=== PATIENT | female | born 1965 | race Caucasian/White ===

== ENCOUNTER 2016-08-04 08:15 | Inpatient (IN) | payer SELFPAY ==
[~2016-08-04] VITALS: Ht 162.6 cm; Wt 63.0 kg
--- NOTE | ~2016-08-04 | DS ---
ADMIT: 08/04/2016 RM/LOC: 527 [facility] MR#: [id number] [address] [facility] [address], [place] [address] XANDER SAALS [address] [place] [address] Discharge Summary SEX: F AGE: 50 : 1965 ADMISSION DATE: 08/04/2016 DISCHARGE DATE: 08/06/2016 REASON FOR HOSPITALIZATION: Abdominal pain, nausea, vomiting. HISTORY: A 50-year-old female patient with recurrent abdominal ascites planning for outpatient hepatic speciality clinic workup in [place]. She is receiving paracentesis on a regular basis for symptomatic ascites. She presented to the hospital with 12-18 hours of nausea, vomiting, chills, but no definite fever. HOSPITAL COURSE: She was admitted to the hospital. Dr. Mcknight arranged for IV hydration at 175 mL per hour, Dilaudid PSYCHIC READER, Zofran, CT of the abdomen and pelvis and further lab work including stool C. Difficile. She was found to be positive for C. Difficile and p.o. vancomycin was started. On 08/06, Dr. Gordon saw the patient and felt she was appropriate for dismissal home. She was to continue an oral course of vancomycin. FINAL DIAGNOSES: 1. Clostridium difficile colitis. 2. Questionable subacute bacterial peritonitis. 3. History of cervical cancer. 4. Recurrent ascites. DISCHARGE INSTRUCTIONS: She was to follow up in my office in one week. Khoi Nath DO/ kayode JOB #: [id number] CC: Khoi Nath DO, Attending Physician Khoi Nath DO, Family Physician
[~2016-08-04 08:15] MED LIST: CATAPRES-DPS0.1 MG PO; CRANBERRY450 M1 PO; HYDROCODONE 5MG/5 MG PO; THERAPEUTIC MUL1 TAB PO; ZESTRIL DPS10 MG PO
[2016-08-07] MEDS ORDERED: NORCO 5-325 TA1 EACH PO (17:24)
[2016-08-07] MEDS ORDERED: CIPRO DPS500 MG PO (17:24)
[2016-08-07] MEDS ORDERED: VANCOCIN125 MG PO (17:25)
--- NOTE | 2016-08-12 08:10 | ER ---
ADMIT: 08/04/2016 RM/LOC: 527 [facility] MR#: [id number] [address] [facility] [address] [place], [place] [address] XANDER SALAS [address] [place] [address] Emergency Room Report SEX: F AGE: 50 : 1965 DATE: 08/04/2016 HISTORY OF PRESENT ILLNESS: A 50-year-old female with known ascites, comes to the Emergency Department with complaints of abdominal pain, nausea, and retching, started sudden onset last night. She said she has similar episodes, but not as severe, each time prior to having a paracentesis done. She denies fevers, chills. Denies chest pain or shortness of breath. PAST MEDICAL HISTORY: Ascites and liver failure of undetermined etiology. PHYSICAL EXAMINATION: GENERAL: Reveals a 50-year-old female, in mild amount of distress. She is alert, oriented, appropriate. LUNGS: Clear to auscultation. CARDIOVASCULAR: Tachycardia. ABDOMEN: Soft, but tender in the right upper quadrant. Normal bowel tones. SKIN: Unremarkable. EXTREMITIES: Unremarkable. MASTER BLACK BELT: No focal findings. LABORATORY DATA: Pertinent labs; CBC was within normal parameters. Chemistries with a potassium 3.1, glucose 113. A right upper quadrant ultrasound was unremarkable, save for ascites. The patient was admitted with abdominal pain and ascites. Jay Talavera MD/ ailyn JOB #: [id number] CC: Khoi Nath DO, Attending Physician Khoi Nath DO, Family Physician
--- NOTE | 2016-09-20 08:17 | HP ---
ADMIT: 08/04/2016 RM/LOC: 527 [facility] MR#: [id number] [address] [facility] [address] [place], [place] [address] XANDER SALAS [address] [place] [address] History and Physical SEX: F AGE: 50 : 1965 DATE OF SERVICE: 08/04/2016 REASON FOR HOSPITALIZATION: Nausea, vomiting, and chills. HISTORY: The patient presented with nausea, vomiting, and chills and Dr. Mcknight did her initial assessment, history and physical. She was having abdominal pain, increased ascites, and receives recurrent paracentesis. SOCIAL HISTORY She lives with her mother. She continues to smoke. FAMILY HISTORY Noncontributory other than coronary disease and COPD. REVIEW OF SYSTEMS: General weakness, nausea, vomiting, and chills without definite fever. No bleeding. PHYSICAL EXAMINATION: GENERAL: On exam, she was tremulous, awake, alert. HEART: Regular. ABDOMEN: Soft and noted to be benign. She was having some nausea and emesis. IMPRESSION: Nausea and vomiting with possibilities being a spontaneous bacterial peritonitis versus pancreatitis. PLAN: Dr. Mcknight admitted her, evaluated her with labs, gave her Dilaudid AUTOMOTIVE PROFESSIONAL, Zofran, nausea management, and began supportive cares. Khoi Nath DO/ shadel JOB #: [id number] CC: Kohi Nath DO, Attending Physician Khoi Nath DO, Family Physician
[2016-11-16] MEDS ORDERED: DELTASONE DPS20 MG PO (10:50)
[2016-11-16] MEDS ORDERED: DELTASONE DPS5 MG PO (10:51)
[2016-11-16] MEDS ORDERED: PRO-AMATINE2.5 MG PO (10:51)
[2017-01-04] MEDS ORDERED: MILK THISTLE140 M1 PO (13:17)
[2017-01-04] MEDS ORDERED: B-COMPLEX WITH1 EAC2 PO (13:17)
[2017-01-04] MEDS ORDERED: CRANBERRY200 MG PO (13:17)
[2017-01-04] MEDS ORDERED: ATIVAN-DPS0.5 MG PO (13:19)
== END 2016-08-06 15:20 | disposition home or self-care (01) | DRG 371 ==
LOC: ER 08:15 → 5MS 10:33
PROVIDERS: ADMIT Internal Medicine
PROC: 0W9G3ZZ Drainage of Peritoneal Cavity, Percutaneous Approach (ICD-10-PCS; principal; 2016-08-04)
DX: A04.7 Enterocolitis due to Clostridium difficile (principal); K65.2 Spontaneous bacterial peritonitis; R18.8 Other ascites; F17.210 Nicotine dependence, cigarettes, uncomplicated; K72.90 Hepatic failure, unspecified without coma; Z85.41 Personal history of malignant neoplasm of cervix uteri; Z82.49 Family history of ischemic heart disease and other diseases of the circulatory system

== ENCOUNTER 2016-11-11 20:30 | Inpatient (IN) | payer SELFPAY ==
[~2016-11-11] VITALS: Ht 162.6 cm; Wt 66.9 kg
--- NOTE | ~2016-11-11 | ECH ---
Transthoracic Echocardiography Report (TTE) Demographics Patient Name XANDER SALAS Date of Study 11/13/2016 FERNANDA Patient Number [id number] Visit Number [id number] Date of 1965 Room Number 532 Accession Number [id number] Gender Female Age 51 year(s) Referring Portillo Mendiola MD Bag Sorter Guera Gonzalez [facility] Physician Physician Lexie Pathak MD Knocker Off Physician Rosalino Supervising Ordering Physician Portillo Mendiola MD, MD/P Nurse Stress Qc Chemist Conclusions Contractility Score Summary Normal Left Ventricular contractility was noted. Summary Technically adequate exam. The estimated left ventricular ejection fraction is 60-65%. Diastolic assessment reveals normal relaxation. Mild left ventricular hypertrophy. No significant valvular abnormalities. Recommendation The patient will be given the results of this study by the physician who ordered the exam. Procedure Type of Study TTE procedure:Echo Complete SF. Procedure Date Date: 11/13/2016 Start: 08:16 Technical Quality: Adequate visualization Indications:Bradycardia. Additional Indications:orthostatic hypotension Appropriate Use Criteria: 9 Height: 65 inches Weight: 146 pounds BSA: 1.73 m Rhythm: Sinus bradycardia HR: 55 bpm BP: 139/72 mmHg M-Mode/2D Measurements LV Diastolic Dimension: 4.55 cm LV Systolic Dimension: 2.7 cm LV Septum Diastolic: 0.97 cm LV PW Diastolic: 1.02 cm AO Root Dimension: 2.3 cm Cardiac Output: 3.08 l/min LA Dimension: 4.24 cm Cardiac Index: 1.78 l/min*m RV Diastolic Dimension: 3.07 cm LA volume index: 38 ml/m LVOT: 1.76 cm LVOT VTI: 23 cm RV Base: 2.85 cm LV Stroke volume: 55.93 ml RV Mid: 1.87 cm LV Stroke volume index: 32.33 ml/m RV Length: 5.5 cm TAPSE: 3.07 cm TDI-S': 16 cm/s Doppler Measurements AV Peak Velocity: 1.48 m/s MV Peak E-Wave: 0.92 m/s AV Peak Gradient: 8.76 mmHg MV Peak A-Wave: 0.46 m/s AV Mean Gradient: 4.7 mmHg MV E/A Ratio: 2 LVOT Peak Velocity: 1.29 m/s MV P1/2t: 60 msec AV Area (Continuity):1.64 cm MV Deceleration Time: 207 msec Estimated RAP:10 mmHg MV Area (PHT): 3.66 cm PV Peak Velocity: 0.66 m/s PV Peak Gradient: 1.74 mmHg RA Area: 13.21 cm Findings Left Ventricle The left ventricle is normal in size . Mild left ventricular hypertrophy. Diastolic assessment reveals normal relaxation. Right Ventricle Normal right ventricle structure and function. Left Atrium Normal left atrial size. Right Atrium Normal right atrial size. Mitral Valve Normal mitral valve structure and function. Trivial mitral regurgitation by color Doppler. Aortic Valve Normal aortic valve structure and function. Tricuspid Valve Normal tricuspid valve structure and function. Pulmonic Valve Normal pulmonic valve structure and function. Trivial pulmonic valve regurgitation by color Doppler. Pericardial Effusion No evidence of pericardial effusion. Miscellaneous Visualized portions of the aortic root and ascending aorta appear normal in size. Pleural Effusion No evidence of pleural effusion. Contractility Score LV regional wall motion:(0-Non visualized 1-Normal 2-Hypokinesis 3-Akinesis 4-Dyskinesis 5-Aneurysm) Signature
[~2016-11-11 20:30] MED LIST changes: +CIPRO DPS500 MG PO; +NORCO 5-325 TA1 EACH PO; +VANCOCIN125 MG PO
--- NOTE | 2016-11-12 06:58 | ER ---
ADMIT: 11/11/2016 RM/LOC: ER [facility] MR#: [id number] 2620 [facility] [address] [place], [place] [address] XANDER SALAS [address] [place] [address] Emergency Room Report SEX: F AGE: 51 : 1965 DATE: 11/11/2016 HISTORY OF PRESENT ILLNESS: The patient is a 51-year-old female with a past medical history of ascites of unknown cause and chronic liver disease, came to the ER with chief complaint of feeling shaky and feeling dizzy after standing up. The patient states all day she was nauseous, but did not vomit that much and did not have any diarrhea. The patient states she felt very dizzy after standing up from sitting or lying flat and she feels very shaky after that and allegedly on one episode, she had to sit down and after sitting down, she rolled over on a stair, but no loss of consciousness, no head trauma and ambulated after that. The patient denies any headaches, neck pain, back pain, chest pain, shortness of breath, or abdominal pain. PHYSICAL EXAMINATION: VITAL SIGNS: The patient has blood pressure of 168 over 80s, heart rate is changing from mid 40s to mid 50s, respiratory rate is 18, temperature is 97.9, and O2 saturation is 97% on room air. GENERAL: The patient is lethargic and a little anxious with mild distress. HEENT/NECK: I did not see any signs of trauma. No hemotympanum. No bowel sign or raccoon eyes. There is no spinal midline tenderness or step-offs. Pupils are 3 mm, reactive to light. NEUROLOGICAL: Motor and sensory and cerebellar and cranial nerves exam are grossly normal. CHEST: Normal equal breath sounds without any crackles. HEART: Normal S1, S2 without any murmurs. Also, no gallops. ABDOMEN: Soft. I did not feel any fluid wave in abdomen. There is no tenderness in abdomen and no rebound. EXTREMITIES: I did not see any swelling in the extremities. EMERGENCY ROOM COURSE: Orthostatic vitals were positive. The patient was started on IV fluid normal saline 1 L. Followup labs shows sodium of 136, with potassium of 3.0, and magnesium of 1.4. The patient also was given 2 g of magnesium sulfate IV and also 60 mEq of K-Dur p.o. The patient's urine tox ADMIT: 11/11/2016 RM/LOC: [facility] MR#: [id number] [address] [address] XANDER SALAS [place] [address] Emergency Room Report SEX: F AGE: 51 : 1965 was negative and blood alcohol level was 48. Ammonia level was 22 and AST and ALT were 27 and 24 respectively. After the 1st liter, the patient was rechecked and still had orthostatic hypotension. The patient received a 2nd L of fluid. Meanwhile, the TSH was normal and troponin I was negative. An EKG showed sinus bradycardia with a rate of 46. After the 2nd liter of fluid, the patient still has positive orthostatic hypotension. Lying position, the systolic blood pressure was in 160s and while the patient stands up, becomes very shaky and blood pressure systolic drops to 100. Meanwhile, the patient has an increased heart rate of 10 to 15. DIAGNOSES: With diagnoses of orthostatic hypotension, dizziness, symptomatic bradycardia, the patient was admitted for further followups and treatments. Bryn Camarillo MD/ ailyn JOB #: [id number] CC: Bryn Camarillo MD, Attending Physician Khoi Nath DO, Family Physician
--- NOTE | 2016-11-13 08:38 | HP ---
ADMIT: 11/12/2016 RM/LOC: 532 [facility] MR#: [id number] 2620 [facility] [address] [place], [place] [address] XANDER SALAS [address] [place] [address] History and Physical SEX: F AGE: 51 : 1965 DATE OF SERVICE: 11/12/2016 REASON FOR HOSPITALIZATION: Orthostatic hypotension. HISTORY OF PRESENT ILLNESS: This is a 51-year-old female patient, who has recurrent ascites with regular paracenteses performed. Her last paracentesis was performed about 2 months ago. These have always shown negative cytology for malignancy although she does have a history of endocervical cancer/adenocarcinoma status post hysterectomy. Yesterday, she developed orthostatic like symptoms and ultimately fell but did not hit her head. She came to the emergency room when this did not resolve. She was given 2 L of IV fluid bolus and her orthostasis persisted. She is also found in the emergency department to have sinus bradycardia and is now admitted for further management. History of ascites, cervical cancer, hypertension, hysterectomy, and tobacco. SOCIAL HISTORY: She smokes, lives with family. She is disabled. FAMILY HISTORY: Heart disease and COPD. MEDICATIONS: Lortab. REVIEW OF SYSTEMS: Dizziness, no real nausea and vomiting currently. Denies any chest pain, shortness of breath, fevers, chills, sputum production, dysuria, diarrhea, or constipation. PHYSICAL EXAMINATION: GENERAL: She is pleasant. She does have some mild ascites. HEART: Regular. LUNGS: Clear. ABDOMEN: Soft, nontender. She has no peripheral edema. DIAGNOSTIC DATA: BUN 7, creatinine 0.8, hemoglobin is 15.7, cortisol 8 a.m. and 4 p.m. are pending. IMPRESSION: Orthostatic hypotension and bradycardia. PLAN: We are admitting her, placing her on telemetry, given her IV fluids. We will check metabolic status, echocardiogram, and consider further interventions based upon results. Khoi Nath, DO/ modl JOB #: [id number] CC: Khoi Nath, Attending Physician Khoi Nath, Family Physician
[2016-11-16] MEDS ORDERED: DELTASONE DPS20 MG PO (10:50)
[2016-11-16] MEDS ORDERED: PRO-AMATINE2.5 MG PO (10:51)
[2016-11-16] MEDS ORDERED: DELTASONE DPS5 MG PO (10:51)
--- NOTE | 2016-11-27 06:39 | CO ---
ADMIT: 11/12/2016 RM/LOC: 532 [facility] MR#: [id number] 2620 [facility] [address] [place], [place] [address] XANDER SALAS [address] [place] [address] Consultation SEX: F AGE: 51 : 1965 DATE OF CONSULTATION: 11/13/2016 ATTENDING PHYSICIAN: Khoi Nath CONSULTING PHYSICIAN: Rosalino Pathak MD REASON FOR CONSULT: Sinus bradycardia. This is Natalie Cohen RN, scribing for Dr. Rosalino Pathak. HISTORY OF PRESENT ILLNESS: Xander is a pleasant 51-year-old female, I have been asked to see in Cardiology consultation by Dr. Ntah for sinus bradycardia. She has no prior history of coronary artery disease and has not followed with Cardiology in the past. Ms. Lo is a smoker and has smoked for about 14 years about half a pack a day. She has previous history of high blood pressure, but she has been off high blood pressure medications for 3 to 4 months. She has history of liver disease, hepatitis in her 20s, and then ended up having endocervical adenocarcinoma resulting in hysterectomy, and has had recurrent ascites since that time. She reports that she had weekly paracentesis up until the last two months where she has been able to go without having that done. She is disabled and lives with her mom. She lives in [place]. Xander presented to [facility] on 11/11 with complaints of lightheadedness and dizziness. She stated that earlier that day, she would get up and feel dizzy. She would sit and rest for an hour so and then get up again and felt fine. Two and half hours later, she tried again standing up, was very lightheaded and weak, rested and improved again. Later that day, she was upstairs, tried to get downstairs and fell her legs very weak and wobbly, she sat down and went down the stairs that way and ended up kind of rolling over on the stairs without having any syncope and called for assistance. She was having significant orthostatic blood pressure changes noted in the emergency room with systolic blood pressures in the 160s lying and down to 100 standing. Yesterday, she had systolic blood pressure of 137 lying and 73 standing, and her symptoms again today. Her heart rate has been in the 50s at rest as well as standing. She is asymptomatic at rest. She has not had any syncope. She denies any chest pain, shortness of breath, palpitations, peripheral edema, or orthopnea. PAST MEDICAL HISTORY: Tobacco use; hepatitis; recurrent ascites; history of endocervical adenocarcinoma, status post hysterectomy. ALLERGIES: NO KNOWN MEDICATION ALLERGIES. MEDICATIONS: She has Lortab p.r.n. and has been getting some IV fluids. FAMILY HISTORY: Positive family history of mom having three-vessel bypass. Positive family history of dad dying from myocardial infarction after having kidney failure. ADMIT: 11/12/2016 RM/LOC: 532 [facility] MR#: [id number] [address] [place] [address] XANDER SALAS [address] [place] [address] Consultation SEX: F AGE: 51 : 1965 SOCIAL HISTORY: Xander is single, she lives with her mom, she is disabled. She denies any alcohol or drug use. She denies any caffeine. She does smoke anywhere from 5 to 10 cigarettes a day, has smoked for the last 14 years. REVIEW OF SYSTEMS: GENERAL: Denies fatigue, fever, chills, sweats, rash, or weight loss. EYES: Denies double vision, blurred vision, cataracts, or glaucoma. ENT: Denies hearing loss or problems with nose, mouth or throat. PULMONARY: Denies cough, sputum production, asthma, emphysema or bronchitis. Denies snoring loudly, wakefulness at night, or fatigue upon awakening. GASTROINTESTINAL: History of hepatitis in her 20s; history of recurrent ascites, requiring paracentesis, last was about two months ago. Denies heartburn or difficulty swallowing. No change in bowel habits. Denies dark or bloody stools. No history of ulcers, hiatal hernia, or gallbladder or liver disease. GENITOURINARY: Denies dysuria, hematuria, nocturia, urinary tract infection, or kidney stones. Denies history of renal insufficiency or failure. MUSCULOSKELETAL: Denies history of arthritis or gout. Denies muscle or joint pains. ENDOCRINE: Denies history of thyroid dysfunction or diabetes. HEMATOLOGIC: History of endocervical adenocarcinoma, status post hysterectomy. Denies anemia or bleeding issues. NEUROLOGIC: She has had some lightheadedness and dizziness, but no history of stroke or seizure. PSYCHIATRIC: Denies history of mental illness or feelings of depression. PHYSICAL EXAMINATION: VITAL SIGNS: Blood pressure 139/72, heart rate 53, respirations 16, temperature 98.5, oxygenation 97% on room air. SKIN: [place], warm and dry. EYES: Sclerae clear. No xanthelasmas. ENT: Oral mucosa is pink and moist. No jugular venous distention or carotid bruits. CHEST: Respirations are even and unlabored. Lungs are clear to auscultation. HEART: Regular rate and rhythm. Normal S1, S2. No murmurs, rubs or gallops. ABDOMEN: Soft and nontender. MUSCULOSKELETAL: Gait is normal. EXTREMITIES: Peripheral pulses palpable. No clubbing, cyanosis or edema. PSYCHIATRIC: Alert and oriented. Mood and affect are appropriate. DIAGNOSTIC DATA: On 11/12, sodium 136, potassium 3.9, BUN 87, creatinine 0.8, glucose 121, free T4 1.08, TSH 2.73. ASSESSMENT AND PLAN: 1. Orthostatic hypotension. 2. Sinus bradycardia. 3. Cirrhosis. Xander is quite symptomatic with orthostatic blood pressure changes. She has a ADMIT: 11/12/2016 RM/LOC: 532 [facility] MR#: [id number] [address] [address] XANDER SALAS [address] [place] [address] Consultation SEX: F AGE: 51 : 1965 resting sinus bradycardia without increase in heart rate with drop in blood pressure on standing. This is most suggestive of autonomic failure and neurogenic orthostatic hypotension. I agree with volume expansion and adrenal evaluation. I will check echocardiogram for any wall motion abnormalities, valvular abnormalities, or decreased ejection fraction, and start her on midodrine. We will need to watch closely with cirrhosis history and we will also watch heart rate closely with midodrine. She will be on 10 mg p.o. t.i.d. starting now and recheck EKG in the morning. I will continue to follow her closely. "I have read and agree with the documentation that has been completed regarding this visit. By signing this record, I attest that the documentation was completed in my physical presence and is an accurate record of the encounter." Natalie Cohen RN / Rosalino Pathak MD / ailyn JOB #: [id number] CC: Khoi Nath, Attending Physician Khoi Nath, Family Physician
--- NOTE | 2016-12-25 08:14 | DS ---
ADMIT: 11/12/2016 RM/LOC: 532 [facility] MR#: [id number] 2620 [facility] [address] [place], [place] [address] XANDER SALAS [address] [place] [address] General Discharge Summary SEX: F AGE: 51 : 1965 ADMISSION DATE: 11/12/2016 DISCHARGE DATE: 11/15/2016 REASON FOR HOSPITALIZATION: Orthostatic hypotension and bradycardia. HISTORY OF PRESENT ILLNESS: A 51-year-old female patient with recurrent ascites and receives regular and routine paracentesis. She had not had a paracentesis for about 2 months when she presented with orthostasis and sinus bradycardia. HOSPITAL COURSE: She was admitted to telemetry, received IV normal saline hydration, appropriate lab evaluation and metabolic assessment including 8 a.m. and 4 p.m., cortisol levels. These came back suppressed and therefore, I had her undergo a cosyntropin stimulation test. I also checked a CA-125, which was 15.3, and an echocardiogram as well as CT of her adrenal glands. Cardiology was consulted for the bradycardia and started her on midodrine. CT of her adrenals was unremarkable. Her cosyntropin stimulation test was marginally abnormal, and I therefore started her on steroid supplementation. With midodrine and steroids, her orthostasis resolved as did her symptoms. She did complain of some arm and shoulder pain, and x-rays were performed. Echocardiogram revealed ejection fraction of 60% to 65%. On 11/15, she was feeling better. Orthostasis had resolved. X-rays of her shoulder revealed degenerative changes. CBC and basic metabolic profile were stable and within normal, and she was felt appropriate for dismissal home. I dismissed her to return to my clinic in 10 to 14 days. DISCHARGE MEDICATIONS: She was to continue; 1. Midodrine 5 mg p.o. t.i.d. 2. Steroid supplementation consisting of Deltasone 20 mg in the morning and 10 mg q.2 p.m. Khoi Nath DO/ ailyn JOB #: [id number] CC: Khoi Nath DO, Attending Physician Khoi Nath DO, Family Physician
[2017-01-04] MEDS ORDERED: B-COMPLEX WITH1 EAC2 PO (13:17)
[2017-01-04] MEDS ORDERED: CRANBERRY200 MG PO (13:17)
[2017-01-04] MEDS ORDERED: MILK THISTLE140 M1 PO (13:17)
[2017-01-04] MEDS ORDERED: ATIVAN-DPS0.5 MG PO (13:19)
== END 2016-11-15 09:00 | disposition home or self-care (01) | DRG 312 ==
LOC: ER 20:30 → 5MS 11-12 00:20
PROVIDERS: ADMIT Internal Medicine
DX: I95.1 Orthostatic hypotension (principal); K74.60 Unspecified cirrhosis of liver; E27.40 Unspecified adrenocortical insufficiency; I10 Essential (primary) hypertension; R00.1 Bradycardia, unspecified; M19.011 Primary osteoarthritis, right shoulder; F17.200 Nicotine dependence, unspecified, uncomplicated; Z85.41 Personal history of malignant neoplasm of cervix uteri; Z82.49 Family history of ischemic heart disease and other diseases of the circulatory system; Z86.19 Personal history of other infectious and parasitic diseases

== ENCOUNTER 2017-01-29 06:02 | Emergency (ER) | payer SELFPAY ==
[~2017-01-29 06:02] MED LIST changes: +ATIVAN-DPS0.5 MG PO; +B-COMPLEX WITH1 EAC2 PO; +CRANBERRY200 MG PO; +DELTASONE DPS20 MG PO; +DELTASONE DPS5 MG PO; +MILK THISTLE140 M1 PO; +PRO-AMATINE2.5 MG PO
== END 2017-01-29 09:50 | disposition home or self-care (01) ==
DX: E27.1 Primary adrenocortical insufficiency (principal); R25.1 Tremor, unspecified; I10 Essential (primary) hypertension; F17.210 Nicotine dependence, cigarettes, uncomplicated; Z90.710 Acquired absence of both cervix and uterus; Z79.899 Other long term (current) drug therapy